=== PATIENT | female | born 1985 | race Caucasian/White ===

== ENCOUNTER 2016-05-20 14:08 | Emergency (ER) | payer OTHER ==
[~2016-05-20] VITALS: Ht 154.9 cm; Wt 87.7 kg
[2016-05-20] MEDS ORDERED: METFORMIN HCL500 M4 PO (15:08)
[2016-05-20 17:22] VITALS: BP 121/65
== END 2016-05-20 17:23 | disposition home or self-care (01) ==
LOC: EME 14:08
DX: M79.605 Pain in left leg (principal); E78.5 Hyperlipidemia, unspecified
CPT/HCPCS: 93971; 99281; 99283

== ENCOUNTER 2017-02-27 16:24 | Emergency (ER) | payer OTHER ==
[~2017-02-27] VITALS: Ht 157.5 cm; Wt 81.2 kg
[~2017-02-27 16:24] MED LIST: COLACE100 MG PO; ENDOCET 5-3251 EACH PO; IBUPROFEN800 MG PO; METFORMIN HCL500 M4 PO; PRENATAL TABLE1 EAC3 PO
[2017-02-27 16:58] LABS: BASOPHIL COUNT 0.1 K/uL (0-0.1); EOSINOPHIL (%) 0.8 % (0-5); EOSINOPHIL COUNT 0.1 K/uL (0-0.3); HEMATOCRIT 39.7 % (36.0-46.0); IMMATURE GRANULOCYTE (%) 0.2 % (0.0-0.7); INSTRUMENT ABS NEUTROPHIL CT 4.9 K/uL; MCH 29.9 PG (29.0-34.0); MCHC 33.8 G/DL (30.0-36.0); MCV 88.6 FL (83-99); MEAN PLAT.VOLUME 9.5 uM^3 (9.5-12.4); MONOCYTE (%) 5.4 % (3-12); MONOCYTE COUNT 0.5 K/uL (0-0.8); NEUTROPHIL (%) 57.5 % (45-76); NEUTROPHIL COUNT 4.9 K/uL (1.8-6.4); PLATELET COUNT 279 K/uL (156-360); RBC DIS.WIDTH-SD 39.1 % (39-53); RED BLOOD COUNT 4.48 M/uL (3.80-5.20); WHITE BLOOD COUNT 8.5 K/uL (4.1-10.2)
[2017-02-27 17:08] LABS: CHLORIDE 107 mEq/L (99-109); POTASSIUM 3.7 mEq/L (3.7-5.4); SODIUM 139 mEq/L (136-147)
[2017-02-27 17:10] LABS: GLUCOSE 90 mg/dL (70-99)
[2017-02-27 17:11] LABS: ANION GAP 8 MEQ/L (2-14)
[2017-02-27 17:14] LABS: GFR ESTIMATE (CALCULATED) > 59 mL/min/
[2017-02-27 17:15] LABS: ADD MIUA? YES; BILIRUBIN NEGATIVE; BLOOD SMALL; COLOR STRAW ((YELLOW)); GLUCOSE (STRIP) NEGATIVE; KETONES NEGATIVE; LEUKOCYTES NEGATIVE; NITRITE NEGATIVE; PROTEIN (STRIP) NEGATIVE; SPECIFIC GRAVITY 1.009 (1.000-1.030); UROBILINOGEN 0.2 MG/DL (0.2-1.0)
[2017-02-27 17:15] LABS: UREA NITROGEN (BUN) 10 mg/dL (9-23)
[2017-02-27 17:18] LABS: BACTERIA RARE /HPF; EPITHELIAL CELLS RARE /HPF; MUCUS TRACE /LPF; RED BLOOD CELLS 0-5 /HPF (0-5); WHITE BLOOD CELLS 0-5 /HPF (0-5)
[2017-02-27 17:22] LABS: QUANTITATIVE HCG < 4.0 MIU/ML
[2017-02-27 18:39] VITALS: BP 124/79
== END 2017-02-27 18:41 | disposition home or self-care (01) ==
LOC: EME 16:24
PROVIDERS: Physician Assistant
DX: R10.30 Lower abdominal pain, unspecified (principal); M54.9 Dorsalgia, unspecified; R35.0 Frequency of micturition; R82.99 Other abnormal findings in urine; N88.8 Other specified noninflammatory disorders of cervix uteri
CPT/HCPCS: 74000; 76856; 80048; 81003; 84702; 85025; 99281; 99283